=== PATIENT | female | born 1985 | race African-American/Black ===

== ENCOUNTER 2018-06-08 22:46 | Emergency (ER) | payer MEDICAID ==
[~2018-06-08] VITALS: Ht 154.9 cm; Wt 64.0 kg
[2018-06-09 04:02] VITALS: BP 118/56
== END 2018-06-09 04:04 | disposition home or self-care (01) ==
LOC: ER 22:46
DX: B34.9 Viral infection, unspecified (principal)
CPT/HCPCS: 81025; 99283